=== PATIENT | male | born 1975 | race African-American/Black ===

== ENCOUNTER 2017-03-02 12:05 | Emergency (ER) | payer SELFPAY ==
[~2017-03-02] VITALS: Ht 177.8 cm; Wt 82.0 kg
[2017-03-02 12:06] VITALS: BP 153/95; PULSE 80; RESP 16; TEMP 98.9; O2SAT 95
--- NOTE | 2017-03-02 12:18 | PD ---
HPI Chief Complaint: Laceration/Skin Injury Time Seen by Provider: 12:17 Travel History International Travel<30 days: No Contact w/Intl Traveler<30days: No Traveled to known affect area: No History of Present Illness HPI 41-year-old male presents to emergency Department with complaint of a laceration to the palmar aspect of his right hand obtained from a broom stick while trying to kill a lizard yesterday. He is up-to-date on his tetanus oxygen. He denies paresthesias, loss of sensation, decreased range of motion, decreased strength to the affected hand. Denies fever, chills, nausea, vomiting. Has not taken any medications to relieve the symptoms. Has applied pressure and a Band-Aid to control bleeding. No known allergies. No other medical complaints. No with (factors or associated signs and symptoms. PFSH Social History Tobacco Use: No Allergies-Medications (Allergen,Severity, Reaction): Coded Allergies: No Known Allergies (Unverified , 03/02/17) Reported Meds & Prescriptions Reported Meds & Active Scripts Active Ibuprofen 800 Mg Tab 800 Mg PO Q6HR PRN Keflex (Cephalexin) 500 Mg Cap 500 Mg PO Q8H 7 Days Review of Systems Except as stated in HPI: all other systems reviewed are Neg Physical Exam Narrative GENERAL: Well-nourished, well-developed -Americans male patient, in no acute distress SKIN: Warm and dry. 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 Right upper extremity supple and non-tense with 2+ radial pulse and sensory intact and without erythema or edema. HEAD: Atraumatic. Normocephalic. EYES: Pupils equal and round. No scleral icterus. No injection or drainage. ENT: Mucosa pink and moist. Airway patent. NECK: Trachea midline. CARDIOVASCULAR: Regular rate. RESPIRATORY: No accessory muscle use. GASTROINTESTINAL: Rounded. MUSCULOSKELETAL: No obvious deformities. No clubbing. No cyanosis. No edema. NEUROLOGICAL: Awake and alert. Oriented 3. No obvious cranial nerve deficits. Motor grossly within normal limits. Normal speech. PSYCHIATRIC: Appropriate mood and affect; insight and judgment normal. Data Data Last Documented VS Vital Signs Date Time Temp Pulse Resp B/P Pulse Ox O2 Delivery O2 Flow Rate FiO2 03/02/17 12:06 98.9 80 16 153/95 95 Room Air Orders Lidocai-Epi 1%-1:100,000 Inj (Xylocaine- (03/02/17 12:30) MDM Medical Decision Making Medical Screen Exam Complete: Yes Emergency Medical Condition: Yes Medical Record Reviewed: Yes Differential Diagnosis Laceration, contusion, abrasion Narrative Course 41-year-old male with a horseshoe shaped laceration to his right hand. See my procedure note for laceration repair. Tetanus is up-to-date. Keflex ibuprofen prescribed for home. Instructed patient to return to the emergency department or follow-up with primary care in 7-10 days for suture removal. Patient verbalizes understanding and agreement with treatment plan. Patient is medically cleared and stable for discharge. Discussed reasons to return to the emergency department. Instructed patient to follow up with primary care provider. Patient agrees with treatment plan. The patients vital signs are stable and the patient is stable for outpatient follow-up and treatment. Patient discharged home, stable and in no acute distress. Procedures Procedure Narrative LACERATION LOCATION: Holley aspect of right hand LENGTH: U shaped 2 and half centimeters NUMBER OF STITCHES/HUNTER: 5 simple interrupted sutures REPAIR: The area of the laceration was prepped with Betadine and sterilely draped. The laceration was infiltrated with 1% lidocaine with epinephrine. The wound was copiously irrigated and explored without evidence of foreign body, tendon injury or neurovascular injury. The wound was closed using 4-0 Prolene. This was a single layer repair. A sterile dressing was applied. The patient was advised to keep the dressing clean and dry. Patient tolerated the procedure well. Diagnosis Primary Impression: Laceration of right hand Qualified Code: S61.411A - Laceration of right hand without foreign body, initial encounter Referrals: Primary Care Physician Patient Instructions: Care For Your Stitches (ED), General Instructions, Laceration (ED) Departure Forms: Tests/Procedures, Work Release Enter return to work date: Mar 07, 2017 Additional Instructions: Keep area clean and dry Limit right hand activity to decrease risk of sutures coming undone Ibuprofen or Tylenol as directed and as needed for pain and inflammation Ice pack to area as needed to decrease pain Return to the emergency department or follow-up with primary care provider in 7- 10 days for suture removal Follow up with primary care provider Return to the emergency department immediately with worsening of symptoms, particularly if reddened streaks up or down the affected extremity from the suture site, fever, numbness/tingling in the affected extremity, loss of sensation in the affected extremity, severe swelling of the affected Med/Other Pt SpecificInfo: Prescription(s) given Scripts Ibuprofen 800 Mg [id number] Mg PO Q6HR PRN (PAIN) #30 TAB Ref 0 Prov:Estela Ordaz 03/02/17 Cephalexin (Keflex)500 Mg [id number] Mg PO Q8H 7 Days Ref 0 Prov:Estela Ordaz 03/02/17 Disposition: 01 DISCHARGE HOME Condition: Stable Estela Ordaz Mar 02, 2017 12:18
[2017-03-02] MEDS ORDERED: CEPH-460 PO (12:22)
[2017-03-02] MEDS ORDERED: IBUP800T23 PO (12:22)
[2017-03-02] MEDS ORDERED: LIDOCAINE 1%/EPINEPHrine 1:100,000 SOLN 20 ML VIAL INFIL ONE (12:30)
== END 2017-03-02 13:22 | disposition home or self-care (01) ==
LOC: NEPK 12:05
DX: S61.411A Laceration without foreign body of right hand, initial encounter (principal); X58.XXXA Exposure to other specified factors, initial encounter
CPT/HCPCS: 12001